=== PATIENT | female | born 1955 | race Caucasian/White ===

== ENCOUNTER 2021-02-03 08:32 | Emergency (ER) | payer MEDICARE ==
[~2021-02-03] VITALS: Ht 154.9 cm; Wt 61.4 kg
[2021-02-03] MEDS ORDERED: ACET500T15 PO (08:43)
[2021-02-03] MEDS ORDERED: ONDANSETRON 4MG/2ML VIAL IV ONE (09:05)
[2021-02-03] MEDS ORDERED: ASPIRIN 81 MG CHEW TABLET PO ONE (09:05)
[2021-02-03] MEDS ORDERED: MORPHINE 2 MG/ML 1ML VIAL (J2270) IV PRN (09:05)
[2021-02-03 09:13] LABS: BASO % 0.8 % (0.0-1.0); EOS # 0.1 10^3/uL (0.0-0.5); EOS % 1.4 % (0.0-3.0); HEMATOCRIT 40.5 % (36.0-47.0); MEAN CORPUSCULAR HGB CONC 32.1 g/dl (32.0-36.5); MEAN CORPUSCULAR VOLUME 93.5 fl (80.0-96.0); MONO # 0.8 10^3/uL (0.0-0.8); NEUTROPHILS # 2.3 10^3/uL (1.5-8.5); NEUTROPHILS % 43.4 % (36.0-66.0); PLATELET COUNT, AUTOMATED 200 10^3/uL (150-450); RED BLOOD COUNT 4.33 10^6/uL (4.00-5.40); WHITE BLOOD COUNT 5.2 10^3/uL (4.0-10.0)
[2021-02-03 09:21] LABS: INR 0.92; PROTHROMBIN TIME 12.6 SECONDS (12.5-14.3)
[2021-02-03 09:22] LABS: PARTIAL THROMBOPLASTIN TIME 25.2 SECONDS (24.2-38.5)
--- NOTE | 2021-02-03 09:33 | REP ---
INDICATION: CHEST PAIN. COMPARISON: None. TECHNIQUE: Portable AP chest with the patient upright. FINDINGS: The lung cabrales are clear. Cardiac size is normal. The luz maria, mediastinum and skeletal structures are unremarkable. IMPRESSION: Essentially negative portable chest <Electronically signed by Rodrigo Solis > 02/03/21 0929
[2021-02-03 09:40] LABS: ALBUMIN 3.9 GM/DL (3.2-5.2); ALT/SGPT 22 U/L (12-78); BILIRUBIN,DIRECT < 0.1 MG/DL (0.0-0.2); BILIRUBIN,TOTAL 0.2 MG/DL (0.2-1.0); LIPASE 202 U/L (73-393); TOTAL PROTEIN 7.2 GM/DL (6.4-8.2)
[2021-02-03 10:01] LABS: D-DIMER QUANT < 270 ng/ml (<500)
[2021-02-03] MEDS ORDERED: ISOVUE-370 76% 100ML VIAL As Ordered ONE (10:41)
--- NOTE | 2021-02-03 12:16 | REP ---
INDICATION: pleuritic cp w long drive. COMPARISON: Portable chest earlier today. TECHNIQUE: Chest CT with IV contrast, CT angiography. FINDINGS: There are no emboli in the pulmonary trunk or central pulmonary arteries. There are no emboli in the pulmonary artery lobar or segment branches. There are no infiltrates or pleural effusions. There are no lung nodules or masses. There is no mediastinal or hilar lymph node enlargement. There is no axillary lymphadenopathy. The thoracic aorta is unremarkable. Cardiac size is normal. There is no pericardial effusion. The visualized upper abdominal contents are unremarkable except for a 2.4 cm hepatic cyst. IMPRESSION: There are no pulmonary emboli. There are no infiltrates, effusions, nodules or masses. Incidentally identified is a 2.4 cm hepatic cyst. <Electronically signed by Rodrigo Solis > 02/03/21 0821
[2021-02-03] MEDS ORDERED: PERC5TAB12 PO (12:44)
[2021-02-03 13:00] VITALS: BP 111/57
[2021-02-03] MEDS ORDERED: OXYCODONE/APAP 5MG/325MG(BULK FOR ED) 1 TABLET PO ONE (13:10)
--- NOTE | 2021-02-03 19:19 | ECGEPIP ---
[facility] - ED Test Date: 2021-02-03 Pat Name: SHANI SETINER Department: Room: - Gender: Female Online Merchandising Manager: ophelia : 1955 Requested By: Cuba Infante Order Number: [id number] Reading MD: Cuba Infante Measurements Intervals [place] Rate: 80 P: 35 RI: 146 QRS: 35 QRSD: 66 T: 65 QT: 366 QTc: 422 Interpretive Statements Normal sinus rhythm Nonspecific ST T wave changes Delayed R wave progression No prior ECG for comparison Electronically Signed on 02-03-2021 19:19:12 EDT by Cuba Infante
--- NOTE | 2021-02-03 19:26 | ECGEPIP ---
[facility] - ED Test Date: 2021-02-03 Pat Name: SHANI STEINER Department: Room: - Gender: Female Government Affairs Specialist: : 1955 Requested By: Cuba Infante Order Number: [id number] Reading MD: Cuba Infante Measurements Intervals [place] Rate: 65 P: 29 MS: 160 QRS: 25 QRSD: 64 T: 61 QT: 392 QTc: 407 Interpretive Statements Normal sinus rhythm Nonspecific ST T wave changes Delayed R wave progression cw 02/03/[address] T wave changes Electronically Signed on 02-03-2021 19:26:32 EDT by Cuba Infante
== END 2021-02-03 13:04 | disposition home or self-care (01) ==
LOC: M ED 08:32
DX: R07.9 Chest pain, unspecified (principal); K76.89 Other specified diseases of liver
CPT/HCPCS: 36415; 71045; 71275; 80047; 80076; 83690; 84484; 85025; 85379; 85610; 85730; 93005; 93041; 94760; 96374; 96375; 99285; J2270; J2405; Q9967